=== PATIENT | male | born 1960 | race Caucasian/White ===

== ENCOUNTER 2017-05-03 14:52 | Observation (INO) | payer OTHER ==
[~2017-05-03] VITALS: Ht 182.9 cm; Wt 100.5 kg
--- NOTE | 2017-05-03 15:02 | EMERGENCY ROOM VISIT NOTE ---
History Report prepared by Fabio: Florencio Tyler Under the Supervision of: Dr. Charles Mitchell D.O. First contact with patient: 14:54 Chief Complaint: CHEST PAIN Stated Complaint: CHEST PAIN History of Present Illness The patient is a 56 year old male with a history of heart disease who presents to the Emergency Room via EMS with complaints of persistent chest pain that started around 3 hours ago. He states that he was laying down in bed watching TV when the pain suddenly came on. He notes that he was laying in bed because he was "feeling like garbage". The patient says that he felt dizzy as well. He says that for about 3 seconds, he had very bad chest pain, and then since then he has had persistent chest pain that is not as bad. He says that he currently has the pain. He says that pain wraps like a band around his chest. Per EMS, the patient last had an [place] a month ago, and it was a non-STEMI. The patient states that he had one shot of Nitroglycerin by EMS, and it helped a bit. He says that he had a heart catheterization on April 04 at [facility], and he got 2 stents placed. He says that he has had 6 stents placed in total. The patient states that he quit smoking on April 04. The patient adds that he has recently started to have worsened swelling in his face, neck and chest. Source of History: patient, EMS Onset: Around 3 hours ago Position: chest Symptom Intensity: for 3 seconds was very bad Quality: other (pain) Timing: other (persistent) Modifying Factors (Relieving): other (Nitro) Note: Associated symptoms: Recent swelling to face, neck and chest. Dizziness. Feeling like garbage. Review of Systems See HPI for pertinent positives & negatives. A total of 10 systems reviewed and were otherwise negative. Past Medical & Surgical Medical Problems: (1) CAD S/P percutaneous coronary angioplasty (2) Heart disease (3) Non-STEMI (non-ST elevated myocardial infarction) Family History No pertinent family history Social History Smoking Status: Former Smoker Drug Use: none Occupation Status: employed Current/Historical Medications Scheduled Aspirin (Aspirin Chewable), 81 MG PO DAILY Carvedilol (Coreg), 3.125 MG PO BID Lisinopril (Zestril), 40 MG PO DAILY Nicotine (Nicoderm Cq 21MG Patch), 1 PATCH TD DAILY Nitroglycerin (Nitrostat), 0.4 MG UT PRN Ticagrelor (Brilinta), 1 TAB PO BID Scheduled PRN Acetaminophen (Tylenol), 500 MG PO Q6 PRN for Pain Allergies Coded Allergies: Acetaminophen (Verified Allergy, Unknown, RASH, 05/03/17) Hydrocodone (Verified Allergy, Unknown, RASH, 05/03/17) Statins (Verified Allergy, Unknown, GI SYMPTOMS, MUSCLE PAIN, WEAKNESS, ) Physical Exam Vital Signs Date Time Temp Pulse Resp B/P (MAP) Pulse Ox O2 Delivery O2 Flow Rate FiO2 05/03/17 16:52 94 15 99 05/03/17 16:22 93 18 97 05/03/17 15:59 125/94 05/03/17 15:52 89 21 97 05/03/17 15:22 94 15 172/91 98 05/03/17 15:03 97 Room Air 05/03/17 15:03 92 05/03/17 15:03 37.1 85 20 172/91 98 Room Air 05/03/17 15:03 97 Room Air 05/03/17 15:03 97 Room Air 05/03/17 15:00 172/91 Physical Exam GENERAL: Patient is awake, alert, and in no acute distress. Patient is resting comfortably and showing no signs of anxiety EYES: The conjunctivae are clear. The pupils are round and reactive. EARS, NOSE, MOUTH AND THROAT: The nose is without any evidence of any deformity. Mucous membranes are moist tongue is midline NECK: The neck is nontender and supple. RESPIRATORY: Normal respiratory effort is noted there is no evidence of wheezing rhonchi or rales CARDIOVASCULAR: Regular rate and rhythm noted there no murmurs rubs or gallops normal S1 normal S2 GASTROINTESTINAL: The abdomen is soft. Bowel sounds are present in all quadrants. Abdomen is nontender MUSCULOSKELETAL/EXTREMITIES: There is no evidence of gross deformity full range of motion is noted in the hips and shoulders SKIN: There is no obvious evidence of any rash. There are no petechiae, pallor or cyanosis noted. NEUROLOGIC: Patient is awake alert and oriented x3. Medical Decision & Procedures ER Provider Diagnostic Interpretation: X-ray results as stated below per interpretation by me and the radiologist. CHEST ONE VIEW PORTABLE CLINICAL HISTORY: CHEST PAIN dyspnea COMPARISON STUDY: No previous studies for comparison. FINDINGS: The bones soft tissues and hemidiaphragms are normal. The cardiomediastinal silhouette is normal. The lungs are clear. The pulmonary vasculature is normal. IMPRESSION: Negative chest. The above report was generated using voice recognition software. It may contain grammatical, syntax or spelling errors. Electronically signed by: Melvin Martinez M.D. 05/03/2017 3:31 PM Dictated Date/Time: 05/03/2017 3:31 PM Laboratory Results 05/03/17 14:45 Red Blood Count 5.25, Mean Corpuscular Volume 91.8, Mean Corpuscular Hemoglobin 31.8, Mean Corpuscular Hemoglobin Concent 34.6, Mean Platelet Volume 11.7, Neutrophils (%) (Auto) 70.5, Lymphocytes (%) (Auto) 19.6, Monocytes (%) (Auto) 5.4, Eosinophils (%) (Auto) 3.3, Basophils (%) (Auto) 0.9, Neutrophils # (Auto) 7.17, Lymphocytes # (Auto) 2.00, Monocytes # (Auto) 0.55, Eosinophils # (Auto) 0.34, Basophils # (Auto) 0.09 05/03/17 14:45 Test 05/03/17 14:45 05/03/17 15:12 05/03/17 17:10 White Blood Count 10.18 K/uL (4.8-10.8) Red Blood Count 5.25 M/uL (4.7-6.1) Hemoglobin 16.7 g/dL (14.0-18.0) Hematocrit 48.2 % (42-52) Mean Corpuscular Volume 91.8 fL (80-100) Mean Corpuscular Hemoglobin 31.8 pg (25-34) Mean Corpuscular Hemoglobin Concent 34.6 g/dl (32-36) Platelet Count 187 K/uL (130-400) Mean Platelet Volume 11.7 fL (7.4-10.4) Neutrophils (%) (Auto) 70.5 % Lymphocytes (%) (Auto) 19.6 % Monocytes (%) (Auto) 5.4 % Eosinophils (%) (Auto) 3.3 % Basophils (%) (Auto) 0.9 % Neutrophils # (Auto) 7.17 K/uL (1.4-6.5) Lymphocytes # (Auto) 2.00 K/uL (1.2-3.4) Monocytes # (Auto) 0.55 K/uL (0.11-0.59) Eosinophils # (Auto) 0.34 K/uL (0-0.5) Basophils # (Auto) 0.09 K/uL (0-0.2) RDW Standard Deviation 44.5 fL (36.4-46.3) RDW Coefficient of Variation 13.3 % (11.5-14.5) Immature Granulocyte % (Auto) 0.3 % Immature Granulocyte # (Auto) 0.03 K/uL (0.00-0.02) Prothrombin Time 10.6 SECONDS (9.0-12.0) Prothromb Time International Ratio 1.0 (0.9-1.1) Activated Partial Thromboplast Time 27.8 SECONDS (21.0-31.0) Partial Thromboplastin Ratio 1.1 Anion Gap 4.0 mmol/L (3-11) Est Creatinine Clear Calc Drug Dose 90.1 ml/min Estimated GFR () 80.6 Estimated GFR (Non- 69.5 BUN/Creatinine Ratio 20.9 (10-20) Calcium Level 9.4 mg/dl (8.5-10.1) Total Bilirubin 0.5 mg/dl (0.2-1) Direct Bilirubin 0.1 mg/dl (0-0.2) Aspartate Amino Transf (AST/SGOT) 10 U/L (15-37) Alanine Aminotransferase (ALT/SGPT) 24 U/L (12-78) Alkaline Phosphatase 76 U/L (45-117) Total Creatine Kinase 59 U/L (39-308) Creatine Kinase MB 0.8 ng/ml (0.5-3.6) Creatine Kinase MB Ratio 1.4 (0-3.0) Total Protein 7.8 gm/dl (6.4-8.2) Albumin 4.2 gm/dl (3.4-5.0) Lipase 194 U/L (73-393) Bedside Troponin I < 0.030 ng/ml (0-0.045) Laboratory results per my review. ECG Indication: chest pain Rate (beats per minute): 89 Rhythm: normal sinus Findings: Q waves (Inferior), no ectopy, other (no acute ST segment abnormalities) ED Course 1454: The patient was evaluated in room A12B. A complete history and physical examination were performed. 1617: Upon reevaluation, the patient is resting. I discussed results and treatment plan with him. He verbalizes agreement and understanding. The patient will be evaluated for further management and care. 1640: I discussed the patient's case with Dr. Jose Alfredo Pastor form maker plaster. The patient will be evaluated for further management. 1643: I discussed the patient with Dr. Karla bagley. Medical Decision Differential diagnosis: Etiologies such as cardiac ischemia, aortic dissection, pulmonary embolism, pneumonia, pneumothorax, musculoskeletal, infections, pericarditis, myocarditis , esophageal rupture, gastrointestinal, as well as others were entertained. Nursing notes reviewed. The patient's previous electronic medical records reviewed. The patient is a 56-year-old male who has a history of coronary artery disease as well as recent cardiac stenting who presented to the emergency department for an evaluation of chest pain. The patient describes chest pain which is a band around his chest consistent with squeezing. He also states he has had similar episodes in the past related to coronary artery disease and [place]. The patient was treated with aspirin as well as nitroglycerin prior to arrival. His pain was significantly improved. I discussed the patient's laboratory and radiographic studies with him. I also discussed the limitations of the emergency department workup for chest pain with him. Given the patient's history and comorbidities I also discussed his case with the on-call [facility] hospitalist as well as the on-call [facility] bonding machine operator. They've agreed to evaluate the patient for further management and disposition. Medication Reconcilliation Current Medication List: was personally reviewed by me Blood Pressure Screening Patient's blood pressure: Elevated blood pressure Blood pressure disposition: Elevated BP felt to be situational Consults Time Called: 1637 Consulting Physician: Dr. Jose Alfredo Pastor form maker plaster Returned Call: 1640 I discussed the patient's case with Dr. Jose Alfredo Pastor form maker plaster. The patient will be evaluated for further management. Additional Consults: Time Called: 1640 Consulted Physician: Dr. Karla Pastor cardiology Returned Call: 1643 Additional Comments: I discussed the patient with Dr. Karla bagley. Impression Primary Impression: Chest pain Scribe Attestation The scribe's documentation has been prepared under my direction and personally reviewed by me in its entirety. I confirm that the note above accurately reflects all work, treatment, procedures, and medical decision making performed by me. Departure Information Dispostion Being Evaluated By Hospitalist Patient Instructions My [facility] Health Problem Qualifiers Primary Impression: Chest pain Chest pain type: unspecified Qualified Codes: R07.9 - Chest pain, unspecified
[2017-05-03 15:21] LABS: BASO % 0.9 %; BASO ABS # 0.09 K/uL (0-0.2); EOS % 3.3 %; EOS ABS # 0.34 K/uL (0-0.5); HEMATOCRIT 48.2 % (42-52); HEMOGLOBIN 16.7 g/dL (14.0-18.0); IG# 0.03 K/uL (0.00-0.02); LYMPH % 19.6 %; MEAN CELL VOLUME 91.8 fL (80-100); MEAN CORPUSCULAR HEMOGLOBIN 31.8 pg (25-34); MEAN CORPUSCULAR HGB CONC 34.6 g/dl (32-36); MEAN PLATELET VOLUME 11.7 fL (7.4-10.4); MONO % 5.4 %; MONO ABS # 0.55 K/uL (0.11-0.59); NEUT % 70.5 %; NEUT ABS # 7.17 K/uL (1.4-6.5); PLATELET COUNT 187 K/uL (130-400); RED CELL DISTRIBUTION WIDTH CV 13.3 % (11.5-14.5); RED CELL DISTRIBUTION WIDTH SD 44.5 fL (36.4-46.3); WHITE BLOOD COUNT 10.18 K/uL (4.8-10.8)
[2017-05-03] MEDS ORDERED: NICO21DI35 TD (15:23)
[2017-05-03] MEDS ORDERED: ACET-1256 PO (15:23)
[2017-05-03] MEDS ORDERED: NTRGSL/4 UT (15:23)
[2017-05-03] MEDS ORDERED: CARV3.122 PO (15:23)
[2017-05-03] MEDS ORDERED: LISI40TA PO (15:23)
[2017-05-03] MEDS ORDERED: ASPCH81X PO (15:23)
[2017-05-03] MEDS ORDERED: TICA1TAB PO (15:23)
--- NOTE | 2017-05-03 15:33 | DIAGNOSTIC IMAGING REPORT ---
CHEST ONE VIEW PORTABLE CLINICAL HISTORY: CHEST PAIN dyspnea COMPARISON STUDY: No previous studies for comparison. FINDINGS: The bones soft tissues and hemidiaphragms are normal. The cardiomediastinal silhouette is normal. The lungs are clear. The pulmonary vasculature is normal. IMPRESSION: Negative chest. The above report was generated using voice recognition software. It may contain grammatical, syntax or spelling errors. Electronically signed by: Melvin Martinez M.D. 05/03/2017 3:31 PM Dictated Date/Time: 05/03/2017 3:31 PM
[2017-05-03 15:39] LABS: ALBUMIN 4.2 gm/dl (3.4-5.0); CALCIUM 9.4 mg/dl (8.5-10.1); CREATININE 1.18 mg/dl (0.60-1.40); POTASSIUM 4.5 mmol/L (3.5-5.1)
[2017-05-03 15:42] LABS: PTT PATIENT 27.8 SECONDS (21.0-31.0)
[2017-05-03 15:44] LABS: CKMB 0.8 ng/ml (0.5-3.6); TOTAL PROTEIN 7.8 gm/dl (6.4-8.2)
[2017-05-03] MEDS ORDERED: ACETAMINOPHEN 500 MG TAB PO PRN (17:15)
[2017-05-03] MEDS ORDERED: ONDANSETRON INJ 2 MG/ML 2 ML VIAL IV PRN (17:15)
[2017-05-03] MEDS ORDERED: NITROGLYCERIN 0.4 MG SL PER TAB CHARGE UT PRN (17:15)
[2017-05-03 18:33] VITALS: BP 164/98; PULSE 82; TEMP 36.8; O2SAT 99; Ht 182.9 cm; Wt 100.5 kg
[2017-05-03] MEDS ORDERED: NSS + 20MEQ KCL 1000ML 1,000 ML IV SCH (19:00)
--- NOTE | 2017-05-03 19:53 | HISTORY & PHYSICAL EXAMINATION ---
DATE OF ADMISSION: 05/03/2017 PRIMARY CARE PHYSICIAN: Not from this area. CHIEF COMPLAINT: Dizziness, nausea, lethargy for about 2 to 3 weeks. Chest pain when he woke up this morning. HISTORY OF PRESENT COMPLAINT: He is a 56-year-old male with significant past medical history including heart attack x3 and recent status post cardiac cath and 2 more stent placement in LAD at [facility], on or 05 of April and also hyperlipidemia and hypertension. He has been complaining of feeling generally unwell for the last 2 to 3 weeks following that last stent placement in first week of April. He denies to have any increasing shortness of breath with any increasing tiredness and fatigue with any chest pain, but early this morning, he woke up with a punch in the chest, not like the chest pain that he had before, but that lasted for 10 minutes when he called ambulance. In the ambulance, he got the nitroglycerin. The pain almost gone away and he had some headache following that. No radiation of pain. Did have some nausea, but no vomiting and did have some shortness of breath as well. In the ER, he is free of pain and apparent test came back fairly unremarkable, but given the history of stent placement recently and the chest pain, he was admitted to telemetry unit. PAST MEDICAL HISTORY: Significant for hypertension, hyperlipidemia, not been taking any medications and status post 3 heart attacks with stent placement in LAD on 03 of April at [facility]. He has total of 6 stents placed in the LAD and the last 2 were placed in April. PAST SURGICAL HISTORY: Bilateral shoulder arthroscopic surgery, right foot surgery. He has a history of lumbar disk fracture in 1979, but did not have any surgery. FAMILY HISTORY: Significant that father had heart disease and diabetes in the family, but not with him. SOCIAL HISTORY: He is single. He has 4 children. He quit smoking in April 04 with a 89-cvvy-veyd history of smoking. He does not drink and he has been ambulant. ALLERGIES: TO VICODIN, STATIN AND PLAVIX. MEDICATIONS: He has been on acetaminophen 500 mg q.6 hourly p.r.n., aspirin 81 mg daily, carvedilol 3.125 mg twice daily, lisinopril 40 mg daily, nicotine patch 21 mg daily, Nitrostat 0.4 mg as directed, and Brilinta 90 mg tablet twice daily. REVIEW OF SYSTEMS: Other systems reviewed reveal unremarkable except those mentioned in the history of present complaint. PHYSICAL EXAMINATION: GENERAL: On examination in the Emergency Room, he was not having any acute distress. VITAL SIGNS: Temperature 37.1, pulse is 94, blood pressure 125/94, and saturation 99% on room air. HEENT: Unremarkable. NECK: Supple. No JVD. No bruit. CHEST: Clear to auscultate bilaterally. HEART: S1, S2 regular. ABDOMEN: Soft, benign, nontender. No organomegaly. Bowel sounds present. EXTREMITIES: Negative for any edema. MUSCULOSKELETAL: Examination of the musculoskeletal system did not show any acute arthritis involving any joint. CENTRAL NERVOUS SYSTEM: He was alert, awake, oriented x3. No focal sensory and/or motor deficit appreciated. LABORATORY DATA: Labs noted today, white count was 10.18, H&H 16.7/48.2, and platelet was 187. Sodium 133, potassium 4.5, chloride 101, carbon dioxide 28, BUN 25, creatinine 1.18, and random glucose was 90. LFTs normal. Troponin was less than 0.030. Lipase 194. PT/INR unremarkable. IMAGING STUDIES: Chest x-ray reported as negative chest. An EKG was in sinus rhythm, rate of 89 per minute. Normal axis. Minor nonspecific ST-T wave changes. No prior EKG to compare. IMPRESSION AND PLAN: 1. Chest pain, status post cardiac stent placement in first week of April in left anterior descending. The patient will be admitted to telemetry unit. Cardiology consultation will be taken while in the hospital. Serial cardiac enzymes. Records from [facility] to know about details of the cardiac catheterization. The patient wanted to have a research and development researcher around here and also PCP around here. He is planning to go to [facility] as told. 2. Coronary artery disease, status post 6 cardiac stents placed in left anterior descending, the last 2 was done in second or third of April in [facility], by Dr. Damico. We will continue with his current medications. 3. High cholesterol, he cannot take any statin. He was given atorvastatin. He has been taking it. We will check his cholesterol while in the hospital. 4. Hypertension. BP seems to be under control. Continue with current medication. 5. Gastrointestinal prophylaxis with Protonix. 6. Deep venous thrombosis prophylaxis with subcutaneous heparin. 7. Code status. He will be a full code. In my clinical judgment, the beneficiary meets criteria as per CMS for 2 midnight stay in the hospital. GEORGI
[2017-05-03] MEDS ORDERED: SODIUM CHLORIDE 0.9% 1000ML 1,000 ML IV SCH (22:00)
[2017-05-03] MEDS: TICAGRELOR 90 MG TAB PO SCH (22:15)
[2017-05-03] MEDS: CARVEDILOL 3.125 MG TAB PO SCH (22:15)
[2017-05-03] MEDS: HEPARIN SOD 5000 UNIT/0.5 ML CARP SQ SCH (22:19)
[2017-05-03 23:41] VITALS: BP 92/56; PULSE 79; TEMP 36.7; O2SAT 97
[2017-05-04 03:44] VITALS: BP 103/69; PULSE 90; TEMP 36.8; O2SAT 97
[2017-05-04] MEDS: HEPARIN SOD 5000 UNIT/0.5 ML CARP SQ SCH ×3 (05:31→20:39)
[2017-05-04 05:53] LABS: HEMATOCRIT 44.1 % (42-52); HEMOGLOBIN 15.3 g/dL (14.0-18.0); MEAN CELL VOLUME 91.1 fL (80-100); MEAN CORPUSCULAR HEMOGLOBIN 31.6 pg (25-34); MEAN CORPUSCULAR HGB CONC 34.7 g/dl (32-36); MEAN PLATELET VOLUME 11.2 fL (7.4-10.4); PLATELET COUNT 150 K/uL (130-400); RED CELL DISTRIBUTION WIDTH CV 13.3 % (11.5-14.5); RED CELL DISTRIBUTION WIDTH SD 43.9 fL (36.4-46.3); WHITE BLOOD COUNT 8.14 K/uL (4.8-10.8)
[2017-05-04 06:26] LABS: CALCIUM 8.6 mg/dl (8.5-10.1); CREATININE 1.24 mg/dl (0.60-1.40); POTASSIUM 4.2 mmol/L (3.5-5.1)
[2017-05-04 07:39] VITALS: BP 83/52; PULSE 79; TEMP 36.6; O2SAT 96
[2017-05-04] MEDS: ASPIRIN 81 MG ECTAB PO SCH (08:55)
[2017-05-04] MEDS: CARVEDILOL 3.125 MG TAB PO SCH ×2 (08:55→19:50)
[2017-05-04] MEDS ORDERED: PERFLUTREN LIPID MICROSPHERE (DEFINITY) IV ONE (08:55)
[2017-05-04] MEDS: TICAGRELOR 90 MG TAB PO SCH ×2 (08:55→20:36)
[2017-05-04] MEDS: NICOTINE 21 MG/24 HR TDSY TD SCH (08:56)
[2017-05-04] MEDS ORDERED: LISINOPRIL 40 MG TAB PO SCH (09:00)
[2017-05-04] MEDS ORDERED: EZETIMIBE 10MG TAB PO ONE (11:31)
[2017-05-04 11:40] VITALS: BP 103/68; PULSE 77; TEMP 36.7; O2SAT 98
--- NOTE | 2017-05-04 11:41 | ECHOCARDIOGRAM REPORT ---
*NOTICE TO RECEIVING CONSTITUTION PARTY AGENCY This information is strictly Confidential and protected under [place] law. [place] law prohibits you from making any further disclosure of this information unless further disclosure is expressly permitted by the written consent of the person to whom it pertains or is authorized by law. A general authorization for the release of medical or other information is not sufficient for this purpose. Hospital accepts no responsibility if the information is made available to any other person, INCLUDING THE PATIENT. Interpretation Summary * Name: NORI SANCHES Study Date: 05/04/2017 08:30 AM BP: 83/52 mmHg * Patient Location: C.2T\S\S242\S\2 HR: 76 * : 1960 (M/d/yyyy) Gender: Male Height: 72 in * Age: 56 yrs Ethnicity: CA Weight: 233 lb * Ordering Physician: Radha Veliz * Referring Physician: Self, Referred * Performed By: Stephani Uriostegui RDCS * * Reason For Study: CAD S/P STENT * BSA: 2.3 m2 * The study was technically adequate. * -- Conclusions -- * There is mild concentric left ventricular hypertrophy. * No regional wall motion abnormalities noted. * Left ventricular systolic function is normal. * The LV Ejection Fraction = 55-60%. * Grade I diastolic dysfunction, (abnormal relaxation pattern). * There is no significant valvular heart disease. Procedure Details * A contrast injection of Definity was performed to improve assessment of LV function. * Contrast was injected into an intravenous site in the right arm. * One vial of Definity ultrasound contrast was diluted in normal saline to a total volume of 10 ml. A total of '1' ml of solution was administered during imaging. * Lot # [id number] of Definity utilized for procedure. * Expiration date JUN 22. * The attending nurse who injected the contrast agent was INDERJIT JOHNS RN. * A complete two-dimensional transthoracic echocardiogram was performed (2D, M-mode, Doppler and color flow Doppler). Left Ventricle * The left ventricle is normal in size. * There is mild concentric left ventricular hypertrophy. * Ejection Fraction = 55-60%. * Left ventricular systolic function is normal. * The left ventricular wall motion is normal. * No regional wall motion abnormalities noted. Right Ventricle * The right ventricle is normal size. * The right ventricular systolic function is normal as assessed by tricuspid annular plane systolic excursion (TAPSE) (normal >1.5 cm). Atria * The left atrial size is normal. * Right atrial size is normal. * There is no evidence of atrial septal defect, but resolution does not allow assessment for a patent foramen ovale. Mitral Valve * The mitral valve is normal. * There is no mitral valve stenosis. * Significant mitral regurgitation is absent. Tricuspid Valve * The tricuspid valve is normal. * There is no tricuspid stenosis. * Significant tricuspid regurgitation is absent. Aortic Valve * The aortic valve is trileaflet. * Aortic stenosis is absent. * There is no significant aortic regurgitation. Pulmonic Valve * The pulmonary valve is not well seen, but the Doppler examination is normal without significant regurgitation or stenosis. Great Vessels * The aortic root and proximal ascending aorta are normal sized. Pericardium/Pleural * There is no pericardial effusion. Great Vessels * Normal inferior vena cava diameter and respiratory variation suggests normal central venous pressure. Left Ventricular Diastolic Function * Grade I diastolic dysfunction, (abnormal relaxation pattern). MMode 2D Measurements and Calculations IVSd 1.5 cm IVSs 2.0 cm LVIDd 4.1 cm LVIDs 2.7 cm LVPWd 1.4 cm LVPWs 1.9 cm IVS/LVPW 1.1 FS 35.1 % EDV(Teich) 76.3 ml ESV(Teich) 26.8 ml EF(Teich) 64.9 % EDV(cubed) 71.4 ml ESV(cubed) 19.5 ml EF(cubed) 72.7 % % IVS thick 38.1 % % LVPW thick 42.1 % LV mass(C)d 224.2 grams LV mass(C)dI 98.6 grams/m\S\2 LV mass(C)s 229.7 grams LV mass(C)sI 101.0 grams/m\S\2 SV(Teich) 49.5 ml SI(Teich) 21.8 ml/m\S\2 SV(cubed) 51.9 ml SI(cubed) 22.8 ml/m\S\2 Ao root diam 3.4 cm Ao root area 9.0 cm\S\2 LA dimension 3.6 cm LA/Ao 1.1 LVAd ap4 30.0 cm\S\2 LVLd ap4 8.0 cm EDV(MOD-sp4) 90.2 ml EDV(sp4-el) 95.5 ml LVAs ap4 17.6 cm\S\2 LVLs ap4 6.8 cm ESV(MOD-sp4) 38.8 ml ESV(sp4-el) 38.9 ml EF(MOD-sp4) 57.0 % EF(sp4-el) 59.2 % LVAd ap2 32.5 cm\S\2 LVLd ap2 8.7 cm EDV(MOD-sp2) 105.3 ml EDV(sp2-el) 103.1 ml LVAs ap2 19.1 cm\S\2 LVLs ap2 7.3 cm ESV(MOD-sp2) 42.6 ml ESV(sp2-el) 42.2 ml EF(MOD-sp2) 59.6 % EF(sp2-el) 59.1 % LVLd %diff 8.5 % EDV(MOD-bp) 96.5 ml LVLs %diff 7.6 % ESV(MOD-bp) 40.5 ml EF(MOD-bp) 58.0 % SV(MOD-sp4) 51.4 ml SI(MOD-sp4) 22.6 ml/m\S\2 SV(MOD-sp2) 62.7 ml SI(MOD-sp2) 27.6 ml/m\S\2 SV(MOD-bp) 56.0 ml SI(MOD-bp) 24.6 ml/m\S\2 SV(sp4-el) 56.5 ml SI(sp4-el) 24.9 ml/m\S\2 SV(sp2-el) 60.9 ml SI(sp2-el) 26.8 ml/m\S\2 Doppler Measurements and Calculations MV E max kelby 56.2 cm/sec MV A max kelby 61.5 cm/sec MV E/A 0.91 MV dec time 0.26 sec Ao V2 max 123.8 cm/sec Ao max PG 6.1 mmHg Ao max PG (full) 1.4 mmHg LV V1 max PG 4.7 mmHg LV V1 max 108.3 cm/sec
--- NOTE | 2017-05-04 12:13 | Cardiology Consultation ---
Cardiology Consultation Date of Consultation: May 04, 2017 History of Present Illness Mahad Posey is a 56 year old male seen in cardiology consultation per the request of Dr. Veliz for the evaluation of chest discomfort. He has a complex cardiac history having had his third myocardial infarction in April, which time he received 2 drug-eluting stents to the mid LAD at [facility]. Since discharge he has been feeling well. He has been tolerating his medications well with the exception of atorvastatin which she has stopped taking. He complains of generalized illness and muscle aches with having had been on trials of statin therapy in the past. He states he has not missed any doses of his aspirin or his Brilinta since his recent stents. Yesterday while he was sleeping he woke up with a sudden onset of feeling like he had been "punched in the chest". He felt associated shortness of breath with this. He called EMS and took a dose of aspirin . Upon arrival of the emergency medical services a dose of sublingual nitroglycerin was added yesterday with subsequent improvement in his chest discomfort however he did have a headache and felt a little bit dizzy and nauseous. Since arrival to the emergency room he has been feeling relatively better. He rested well overnight last night and noted several very brief episodes of chest discomfort of one to 2 seconds duration. He does not feel as though the discomfort that brought him to the hospital yesterday is definitely reminiscent of the discomfort that prompted his admission and stenting at [facility] last month. Past Medical/Surgical History Problem List: Medical Problems: (1) CAD S/P percutaneous coronary angioplasty (2) Heart disease (3) Non-STEMI (non-ST elevated myocardial infarction) History Past Medical History: 1. 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 Recurrent angina for which she underwent cardiac catheterization on 09/01/14 receiving 2 stents to the proximal to mid LAD, [facility] 3. Presentation with transient bandlike chest discomfort radiating to his arms, NSTEMI, troponin of 2 ng/ml on presentation. Prompting repeat cardiac catheterization 04/06/17 with findings of in-stent restenosis of the mid LAD with 80-90% in-stent restenosis and an 80% stenosis just distal to the previously placed LAD stents are the patient therefore underwent repeat PCI and placement of overlapping [place] [employer] drug-eluting stents to the mid LAD, [facility] [place] 4. Hypertension 5. Long-standing history of cigarette smoking, ceased smoking with his most recent myocardial infarction, 04/14/17 6. Dyslipidemia, statin intolerance Past Surgical History: 1. Cardiac catheterization 3 as outlined above 2005, 2014, April, Social History: Long-time cigarette smoker, quit 04/04/17 He lives alone, independently. 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 Review Of Systems See above for pertinent positives & negatives. A total of 10 systems reviewed and were otherwise negative, with exception of additional complaint of occasional sensation of palpitations and dizziness. Allergies Coded Allergies: Acetaminophen (Verified Allergy, Unknown, RASH, 05/03/17) Hydrocodone (Verified Allergy, Unknown, RASH, 05/03/17) Statins (Verified Allergy, Unknown, GI SYMPTOMS, MUSCLE PAIN, WEAKNESS, ) Medications Reported Home Medications Medications Dose Route/Sig Max Daily Dose Days Date Category Tylenol (Acetaminophen) 500 Mg Tab 500 Mg PO Q6 PRN 05/03/17 Reported Brilinta (Ticagrelor) 90 Mg Tab 1 Tab PO BID 05/03/17 Reported Nitrostat (Nitroglycerin) 0.4 Mg Tab 0.4 Mg UT PRN 05/03/17 Reported Nicoderm Cq 21MG Patch (Nicotine) 21 Mg/24 Hr Dis 1 Patch TD DAILY 05/03/17 Reported Coreg (Carvedilol) 3.125 Mg Tab 3.125 Mg PO BID 05/03/17 Reported Aspirin Chewable (Aspirin) 81 Mg Chew 81 Mg PO DAILY 05/03/17 Reported Zestril (Lisinopril) 40 Mg Tab 40 Mg PO DAILY 05/03/17 Reported Physical Exam Vital Signs (Last 8hrs): Last 8 Hrs Date Time Temp Pulse Resp B/P (MAP) Pulse Ox O2 Delivery O2 Flow Rate FiO2 05/04/17 11:40 36.7 77 18 103/68 (80) 98 Room Air 05/04/17 08:00 Room Air 05/04/17 07:39 36.6 79 16 83/52 (62) 96 Room Air 05/04/17 04:00 Room Air General Appearance: Alert and Oriented x3. NAD. Head: Normocephalic Atraumatic. Eyes: PERRLA, EOMI, conjunctiva and sclera clear Neck: Supple. No carotid bruits noted. No JVD. No HJD. Respiratory: Breath sounds clear to auscultation bilaterally. No w/r/r. Cardiovascular: Reg rate and rhythm. S1 and S2 noted. No murmurs, rubs, gallops. PMI non displace. Abdomen: Normal bowel sounds, soft nontender. no abdominal bruits. Extremities: No edema, no clubbing or cyanosis. distal pulses 2/4 bilaterally, right radial access from his recent cardiac catheterization is clean dry and intact, with no ecchymosis, no stigmata of peripheral emboli Neuro: No focal deficits. Psychiatric: Normal affect. Data Last Resulted 05/04/17 05:35 Last Resulted 05/04/17 05:35 Past 24 Hours Test 05/03/17 14:45 05/03/17 22:54 05/04/17 05:35 Range/Units Creatine Kinase MB 0.8 0.5-3.6 ng/ml Creatine Kinase MB Ratio 1.4 0-3.0 Prothromb Time International Ratio 1.0 0.9-1.1 Prothrombin Time 10.6 9.0-12.0 SECONDS Total Creatine Kinase 59 39-308 U/L Troponin I 0.017 < 0.015 < 0.015 0-0.045 ng/ml EKG performed 05/03/17 and reviewed independently reveals sinus rhythm at 89 bpm, poor R-wave progression in leads V1 to V3 suggestive of possible age- indeterminate anterior infarction, no significant ST changes. Telemetry reviewed: Sinus rhythm with occasional PVCs Assessment & Plan Impression: 56-year-old male 1. Presented with chest discomfort, somewhat atypical angina, and not reminiscent of the discomfort that was described when he presented with his non- ST segment elevation myocardial infarction in April, 2. Long-standing history of premature aggressive coronary heart disease, with PCI stenting to the mid LAD on 3 separate occasions, 2005, , April 2017. Recent cardiac catheterization describes culprit in-stent restenosis of the LAD for which she underwent implantation of overlapping drug-eluting stents , residual 40-50% proximal RCA stenosis was noted. 3. Hypertension 4. Recent dizziness and palpitations 5. Long-standing tobacco use, recently ceased one month ago Discussion/recommendations: The patient's EKG performed on presentation yesterday was negative, repeat today is pending. Serial cardiac enzymes have been negative with negative troponin levels 3 thus far. He has no symptoms suggestive of angina at present. Recommend increasing his activity as tolerated. I'm going to ask the nurses to help him get up and ambulate in the hallway. The patient states he has problems with arthritis in his knees and he does not feel that he'll be old to walk sufficiently on a treadmill for stress test. His resting echocardiogram performed this morning reveals normal wall motion and no significant valvular heart disease. Review of his recent records from [place] described that he had no significant EKG changes and his resting echocardiogram was within normal limits during that hospital stay at the time of his recent myocardial infarction. Comparison to presentation one month ago, the characteristic of the chest discomfort is different, and his cardiac enzymes are negative on this presentation as compared to being elevated last time. He has not missed any doses of his antiplatelet medications. I recommend getting him up and if he is able to walk comfortably without the additional angina, proceed with pharmacologic stress testing tomorrow. Patient was agreeable to this. I'm going to discontinue his IV fluids. Continue aspirin, Brilinta, lisinopril 40 mg daily, carvedilol 3.125 mg twice a day, and I'm going to add back his LDL 10 mg daily which he has tolerated the past given his significant dyslipidemia and apparent statin intolerance.
[2017-05-04 15:32] VITALS: BP 108/73; PULSE 73; TEMP 36.7; O2SAT 97
[2017-05-04] MEDS ORDERED: PANTOprazole SOD 40 MG TAB PO STA (16:41)
--- NOTE | 2017-05-04 17:34 | Progress Note ---
Internal Med Progress Note Date of Service: May 04, 2017. Provider Documentation: SUBJECTIVE: Patient seen and examined at the bedside. No acute distress. Denies further chest pain episodes. Patient understands he is due for stress test tomorrow OBJECTIVE: Exam: General- no acute distress Eyes- EOMI Neck- trachea midline, no JVD Lungs- CTABL Heart- RRR Abdomen- soft, nontender, + bowel sounds Extremities- no edema Neuro- no focal necrological deficits ASSESSMENT & PLAN: 56-year-old male with significant past medical history including heart attack x3 and recent status post cardiac cath and 2 more stent placement in LAD at [facility], on or 05 of April and also hyperlipidemia and hypertension. He has been complaining of feeling generally unwell for the last 2 to 3 weeks following that last stent placement in first week of April. negative troponin levels 3 Resting Echocardiogram 05/04/2017 There is mild concentric left ventricular hypertrophy. No regional wall motion abnormalities noted. Left ventricular systolic function is normal. The LV Ejection Fraction = 55-60%. Grade I diastolic dysfunction, (abnormal relaxation pattern). There is no significant valvular heart disease. pharmacologic stress testing tomorrow NPO after midnight except medications For above cardiac history, HTN, dyslipidemia Continue aspirin, Brilinta, lisinopril 40 mg daily, carvedilol 3.125 mg twice a day Cardiology service added Zetia 10 mg daily which he has tolerated the past given his significant dyslipidemia and apparent statin intolerance. Gastrointestinal prophylaxis with Protonix. Deep venous thrombosis prophylaxis with subcutaneous heparin. Code status. Full code. Vital Signs: Date Time Temp Pulse Resp B/P (MAP) Pulse Ox O2 Delivery O2 Flow Rate FiO2 05/04/17 16:00 Room Air 05/04/17 15:32 36.7 73 108/73 (85) 97 Room Air 05/04/17 12:00 Room Air 05/04/17 11:40 36.7 77 18 103/68 (80) 98 Room Air 05/04/17 08:00 Room Air 05/04/17 07:39 36.6 79 16 83/52 (62) 96 Room Air 05/04/17 04:00 Room Air 05/04/17 03:44 36.8 90 17 103/69 (80) 97 Room Air 05/04/17 00:02 Room Air 05/03/17 23:41 36.7 79 20 92/56 (68) 97 Room Air 05/03/17 20:00 Room Air 05/03/17 18:33 36.8 82 18 164/98 99 Room Air 05/03/17 17:40 78 20 120/84 97 Room Air Lab Results: Results Past 24 Hours Test 05/03/17 22:54 05/04/17 05:35 Range/Units Troponin I < 0.015 < 0.015 0-0.045 ng/ml White Blood Count 8.14 4.8-10.8 K/uL Red Blood Count 4.84 4.7-6.1 M/uL Hemoglobin 15.3 14.0-18.0 g/dL Hematocrit 44.1 42-52 % Mean Corpuscular Volume 91.1 80-100 fL Mean Corpuscular Hemoglobin 31.6 25-34 pg Mean Corpuscular Hemoglobin Concent 34.7 32-36 g/dl RDW Standard Deviation 43.9 36.4-46.3 fL RDW Coefficient of Variation 13.3 11.5-14.5 % Platelet Count 150 130-400 K/uL Mean Platelet Volume 11.2 7.4-10.4 fL Sodium Level 134 136-145 mmol/L Potassium Level 4.2 3.5-5.1 mmol/L Chloride Level 104 98-107 mmol/L Carbon Dioxide Level 24 21-32 mmol/L Anion Gap 6.0 3-11 mmol/L Blood Urea Nitrogen 23 7-18 mg/dl Creatinine 1.24 0.60-1.40 mg/dl Est Creatinine Clear Calc Drug Dose 84.1 ml/min Estimated GFR () 75.9 Estimated GFR (Non- 65.5 BUN/Creatinine Ratio 18.9 10-20 Random Glucose 93 70-99 mg/dl Calcium Level 8.6 8.5-10.1 mg/dl Magnesium Level 2.2 1.8-2.4 mg/dl Triglycerides Level 108 0-150 mg/dl Cholesterol Level 233 0-200 mg/dl HDL Cholesterol 35 mg/dl LDL Cholesterol, Calculated 176 mg/dl VLDL Cholesterol, Calculated 22 mg/dl Cholesterol/HDL Ratio 6.7 Thyroid Stimulating Hormone (TSH) 2.540 0.300-4.500 uIu/ml
[2017-05-04 19:35] VITALS: BP 82/49; PULSE 79; TEMP 36.7; O2SAT 95
[2017-05-04 23:54] VITALS: BP 100/63; PULSE 72; TEMP 36.4; O2SAT 98
[2017-05-05 03:23] VITALS: BP 98/64; PULSE 71; TEMP 36.5; O2SAT 95
[2017-05-05] MEDS: HEPARIN SOD 5000 UNIT/0.5 ML CARP SQ SCH (06:18)
[2017-05-05 07:50] VITALS: BP 106/68; PULSE 74; TEMP 36.5; O2SAT 97
[2017-05-05 08:17] LABS: ALBUMIN 3.5 gm/dl (3.4-5.0); CALCIUM 8.8 mg/dl (8.5-10.1); CREATININE 1.23 mg/dl (0.60-1.40); POTASSIUM 4.2 mmol/L (3.5-5.1)
[2017-05-05 08:19] LABS: TOTAL PROTEIN 6.6 gm/dl (6.4-8.2)
[2017-05-05] MEDS ORDERED: METOPROLOL TARTRATE 1 MG/ML VIAL ONE (08:40)
[2017-05-05] MEDS ORDERED: ATROPINE SULFATE 0.1 MG/ML 5ML SYR ONE (08:40)
[2017-05-05] MEDS ORDERED: DOBUTamine HCL 12.5 MG/ML 20 ML VIAL ONE (08:40)
[2017-05-05] MEDS ORDERED: PANTOprazole SOD 40 MG TAB PO SCH (09:00)
[2017-05-05] MEDS ORDERED: EZETIMIBE 10MG TAB PO SCH (09:00)
[2017-05-05] MEDS ORDERED: PERFLUTREN LIPID MICROSPHERE (DEFINITY) IV ONE (09:32)
[2017-05-05 10:05] VITALS: BP 114/62; PULSE 86; TEMP 36.7; O2SAT 97
[2017-05-05] MEDS ORDERED: METOPROLOL TARTRATE 25 MG TAB PO ONE (10:07)
[2017-05-05] MEDS: TICAGRELOR 90 MG TAB PO SCH (10:12)
[2017-05-05] MEDS: ASPIRIN 81 MG ECTAB PO SCH (10:12)
[2017-05-05] MEDS: NICOTINE 21 MG/24 HR TDSY TD SCH (10:13)
--- NOTE | 2017-05-05 10:16 | Cardiology Follow-Up ---
Subjective General Date of Service: May 05, 2017. Chief Complaint: follow up chest pain Pt evaluation today including: conversation w/ patient, physical exam History of Present Illness The patient is a 56 year old male seen in follow up. Patient without any angina overnight. Has "twinges" of discomfort that correlate with sensed PVCs. Feels tired and washed out. Notes his BP is much lower than usual. His lisinopril dose of 20 mg had recently been increased to 40 mg daily. Telemetry SR with occasional PVCs. Allergies Coded Allergies: Acetaminophen (Verified Allergy, Unknown, RASH, 05/03/17) Hydrocodone (Verified Allergy, Unknown, RASH, 05/03/17) Statins (Verified Allergy, Unknown, GI SYMPTOMS, MUSCLE PAIN, WEAKNESS, ) Social History Smoking Status: Former Smoker Hx Tobacco Use In Past Year?: Yes Hx Alcohol Use - Type And Amou: No Hx Substance Use - Type And Am: No Problem List Medical Problems: (1) Chest pain Status: Acute Physical Exam Vital Signs Last Vital Signs Documentation Date Time Temp Pulse Resp B/P (MAP) Pulse Ox O2 Delivery O2 Flow Rate FiO2 05/05/17 08:00 Room Air 05/05/17 07:50 36.5 74 18 106/68 (81) 97 Physical Exam Constitutional: Level of Distress: NAD Head: normocephalic ENMT: normal ENT inspection Neck: supple Lungs: Auscultation: no wheezing, no rales/crackles, no rhonchi Cardiovascular: Heart Auscultation: RRR, no murmurs, no rubs, no gallops Abdomen: Inspection & Palpation: soft Extremities: no edema Neurologic: Gait & Station: pertinent finding (no focal deficits ) Assessment and Plan Assessment and Plan DSE summarized below, full report to follow. Impression: 1. Atypical chest pain. h/o CAD, PCI to LAD in 2005, 2014, 04/2017 2. Sensed PVCs 3. H/o HTN, BP often in 90's to low 100's mm Hg during stay 4. Dyslipidemia, statin intolerance Plan: Patient had serial EKG and tropin levels that are negative. Resting echo with normal wall motion. DSE performed this am. Unable to walk due to ankle arthritis. Normal EKG and echocardiographic response having achieved target HR. Patient was uncomfortable during test with spasm of muscle of posterior neck, definitely sensed the occasional PVCs observed, but no prolonged chest pain that was similar to his anginal symptoms that occurred with DE last month. Will reduce lisinopril to 20 mg. DC coreg, and transition to metoprolol tartrate 25 mg BID, likely will provide better PVCs suppression. Start Zetia. Pt to ambulate in hallway. If no symptoms suggestive of angina, will DC with follow up with [facility] cardio at outpt in 1-2 weeks as pt would like to transition to our practice. I have contacted office for appointment. Laboratory Results Last 24 Hours Test 05/05/17 07:25 Sodium Level 135 mmol/L Potassium Level 4.2 mmol/L Chloride Level 105 mmol/L Carbon Dioxide Level 26 mmol/L Anion Gap 5.0 mmol/L Blood Urea Nitrogen 20 mg/dl Creatinine 1.23 mg/dl Est Creatinine Clear Calc Drug Dose 84.3 ml/min Estimated GFR () 76.7 Estimated GFR (Non- 66.1 BUN/Creatinine Ratio 15.9 Random Glucose 97 mg/dl Calcium Level 8.8 mg/dl Total Bilirubin 0.6 mg/dl Aspartate Amino Transf (AST/SGOT) 10 U/L Alanine Aminotransferase (ALT/SGPT) 19 U/L Alkaline Phosphatase 59 U/L Total Protein 6.6 gm/dl Albumin 3.5 gm/dl Globulin 3.1 gm/dl Albumin/Globulin Ratio 1.1
--- NOTE | 2017-05-05 11:31 | Progress Note ---
Internal Med Progress Note Date of Service: May 05, 2017. Provider Documentation: SUBJECTIVE: Patient seen and examined at the bedside after stress test. No acute distress. Eating his meal. No chest pain or shortness of breath OBJECTIVE: Exam: General- no acute distress Eyes- EOMI Neck- trachea midline, no JVD Lungs- CTABL Heart- RRR Abdomen- soft, nontender, + bowel sounds Extremities- no edema Neuro- no focal necrological deficits ASSESSMENT & PLAN: 56-year-old male with significant past medical history including heart attack x3 and recent status post cardiac cath and 2 more stent placement in LAD at [facility], on or 05 of April and also hyperlipidemia and hypertension. He has been complaining of feeling generally unwell for the last 2 to 3 weeks following that last stent placement in first week of April. negative troponin levels 3 Resting Echocardiogram 05/04/2017 There is mild concentric left ventricular hypertrophy. No regional wall motion abnormalities noted. Left ventricular systolic function is normal. The LV Ejection Fraction = 55-60%. Grade I diastolic dysfunction, (abnormal relaxation pattern). There is no significant valvular heart disease. dobutamine stress testing on 05/05/17: Normal EKG and echocardiographic response having achieved target HR For above cardiac history, HTN, dyslipidemia with medication regimen changes advised by cardiology service Continue aspirin, Brilinta and to be discharged with these prescription reduce lisinopril 40 mg daily to 20 mg daily and to be discharged with lisinopril 20 mg daily discontinue carvedilol 3.125 mg twice a day and to be discharged with metoprolol tartrate 25 mg BID Cardiology service added Zetia 10 mg daily and to be discharged with these prescription Smoking Cessation: Continue Nicotine patch, to be discharged with these prescription Gastrointestinal prophylaxis with Pantoprazole and to be discharged with pantoprazole Follow up appointments 05/11/2017 11:20 AM Sunny Ryder DO Family Practice [facility] 05/15/2017 3:00 PM Loy Acosta DO Cardiology, [facility] Discharge diagnosis Atypical chest pain. h/o CAD, PCI to LAD in 2005, 2014, 04/2017 Premature Ventricular Contractions History of HTN (blood pressure controlled in this hospital admission while on blood pressure medications) Dyslipidemia with statin intolerance Smoking Cessation Vital Signs: Date Time Temp Pulse Resp B/P (MAP) Pulse Ox O2 Delivery O2 Flow Rate FiO2 1/2/18 10:05 36.7 86 18 114/62 (79) 97 Room Air 05/05/17 08:00 Room Air 05/05/17 07:50 36.5 74 18 106/68 (81) 97 Room Air 05/05/17 04:00 Room Air 05/05/17 03:23 36.5 71 18 98/64 (75) 95 Room Air 05/05/17 00:00 Room Air 05/04/17 23:54 36.4 72 17 100/63 (75) 98 Room Air 05/04/17 20:00 Room Air 05/04/17 19:35 36.7 79 20 82/49 (60) 95 Room Air 05/04/17 16:00 Room Air 05/04/17 15:32 36.7 73 108/73 (85) 97 Room Air 05/04/17 12:00 Room Air 05/04/17 11:40 36.7 77 18 103/68 (80) 98 Room Air Lab Results: Results Past 24 Hours Test 05/05/17 07:25 Range/Units Sodium Level 135 136-145 mmol/L Potassium Level 4.2 3.5-5.1 mmol/L Chloride Level 105 98-107 mmol/L Carbon Dioxide Level 26 21-32 mmol/L Anion Gap 5.0 3-11 mmol/L Blood Urea Nitrogen 20 7-18 mg/dl Creatinine 1.23 0.60-1.40 mg/dl Est Creatinine Clear Calc Drug Dose 84.3 ml/min Estimated GFR () 76.7 Estimated GFR (Non- 66.1 BUN/Creatinine Ratio 15.9 10-20 Random Glucose 97 70-99 mg/dl Calcium Level 8.8 8.5-10.1 mg/dl Total Bilirubin 0.6 0.2-1 mg/dl Aspartate Amino Transf (AST/SGOT) 10 15-37 U/L Alanine Aminotransferase (ALT/SGPT) 19 12-78 U/L Alkaline Phosphatase 59 45-117 U/L Total Protein 6.6 6.4-8.2 gm/dl Albumin 3.5 3.4-5.0 gm/dl Globulin 3.1 2.5-4.0 gm/dl Albumin/Globulin Ratio 1.1 0.9-2
[2017-05-05] MEDS ORDERED: NICO21DI35 TD (11:34)
[2017-05-05] MEDS ORDERED: NTRGSL/4 UT (11:34)
[2017-05-05] MEDS ORDERED: TICA1TAB PO (11:34)
[2017-05-05] MEDS ORDERED: ASPCH81X PO (11:34)
[2017-05-05] MEDS ORDERED: ZTA10 PO (11:35)
[2017-05-05] MEDS ORDERED: LISI-726 PO (11:35)
[2017-05-05] MEDS ORDERED: LPR25 PO (11:35)
[2017-05-05] MEDS ORDERED: PANT1TAB4 PO (11:35)
[2017-05-05 11:36] VITALS: BP 103/58; PULSE 70; TEMP 36.8; O2SAT 97
--- NOTE | 2017-05-05 11:43 | Discharge Instructions ---
Discharge Instructions Date of Service May 05, 2017. Admission Reason for Admission: Chest Pain, Cad S/P Percutaneous Coronary Discharge Discharge Diagnosis / Problem: Atypical chest pain, history of HTN, Dyslipidemia, Smoking Cessation Discharge Goals Goal(s): Decrease discomfort, Improve function, Increase independence, Improve disease control Activity Recommendations Activity Limitations: per Instructions/Follow-up section Lifting Limitations: until after follow-up appointment Exercise/Sports Limitations: until after follow-up appointment Shower/Bathe: no limitations Instructions / Follow-Up Instructions / Follow-Up negative troponin levels 3 Resting Echocardiogram 05/04/2017 There is mild concentric left ventricular hypertrophy. No regional wall motion abnormalities noted. Left ventricular systolic function is normal. The LV Ejection Fraction = 55-60%. Grade I diastolic dysfunction, (abnormal relaxation pattern). There is no significant valvular heart disease. dobutamine stress testing on 05/05/17: Normal EKG and echocardiographic response having achieved target HR For above cardiac history, HTN, dyslipidemia with medication regimen changes advised by cardiology service Continue aspirin, Brilinta and to be discharged with these prescription reduce lisinopril 40 mg daily to 20 mg daily and to be discharged with lisinopril 20 mg daily discontinue carvedilol 3.125 mg twice a day and to be discharged with metoprolol tartrate 25 mg BID Cardiology service added Zetia 10 mg daily and to be discharged with these prescription Smoking Cessation: Continue Nicotine patch, to be discharged with these prescription Gastrointestinal prophylaxis with Pantoprazole and to be discharged with pantoprazole Follow up appointments 05/11/2017 11:20 AM Sunny Ryder DO Family Practice [facility] 05/15/2017 3:00 PM Loy Acosta DO Cardiology, [facility] For rescheduling call [facility] appointment line [phone] Discharge diagnosis Atypical chest pain. h/o CAD, PCI to LAD in 2005, 2014, 04/2017 Premature Ventricular Contractions History of HTN (blood pressure controlled in this hospital admission while on blood pressure medications) Dyslipidemia with statin intolerance Smoking Cessation Current Hospital Diet Patient's current hospital diet: AHA Diet (Heart Healthy) Discharge Diet Recommended Diet: AHA Diet (Heart Healthy) Pending Studies Studies pending at discharge: no Laboratory Results 05/04/17 05:35 05/05/17 07:25 Test 05/03/17 14:45 05/03/17 15:12 05/04/17 05:35 05/05/17 07:25 Immature Granulocyte % (Auto) 0.3 % White Blood Count 10.18 K/uL (4.8-10.8) Red Blood Count 5.25 M/uL (4.7-6.1) 4.84 M/uL (4.7-6.1) Hemoglobin 16.7 g/dL (14.0-18.0) Hematocrit 48.2 % (42-52) Mean Corpuscular Volume 91.8 fL (80-100) 91.1 fL (80-100) Mean Corpuscular Hemoglobin 31.8 pg (25-34) 31.6 pg (25-34) Mean Corpuscular Hemoglobin Concent 34.6 g/dl (32-36) 34.7 g/dl (32-36) Platelet Count 187 K/uL (130-400) Mean Platelet Volume 11.7 fL (7.4-10.4) 11.2 fL (7.4-10.4) Neutrophils (%) (Auto) 70.5 % Lymphocytes (%) (Auto) 19.6 % Monocytes (%) (Auto) 5.4 % Eosinophils (%) (Auto) 3.3 % Basophils (%) (Auto) 0.9 % Neutrophils # (Auto) 7.17 K/uL (1.4-6.5) Lymphocytes # (Auto) 2.00 K/uL (1.2-3.4) Monocytes # (Auto) 0.55 K/uL (0.11-0.59) Eosinophils # (Auto) 0.34 K/uL (0-0.5) Basophils # (Auto) 0.09 K/uL (0-0.2) Immature Granulocyte # (Auto) 0.03 K/uL (0.00-0.02) Prothrombin Time 10.6 SECONDS (9.0-12.0) Prothromb Time International Ratio 1.0 (0.9-1.1) Activated Partial Thromboplast Time 27.8 SECONDS (21.0-31.0) Partial Thromboplastin Ratio 1.1 Direct Bilirubin 0.1 mg/dl (0-0.2) Total Creatine Kinase 59 U/L (39-308) Creatine Kinase MB 0.8 ng/ml (0.5-3.6) Creatine Kinase MB Ratio 1.4 (0-3.0) Lipase 194 U/L (73-393) Bedside Troponin I < 0.030 ng/ml (0-0.045) RDW Standard Deviation 43.9 fL (36.4-46.3) RDW Coefficient of Variation 13.3 % (11.5-14.5) Magnesium Level 2.2 mg/dl (1.8-2.4) Troponin I < 0.015 ng/ml (0-0.045) Triglycerides Level 108 mg/dl (0-150) Cholesterol Level 233 mg/dl (0-200) HDL Cholesterol 35 mg/dl LDL Cholesterol, Calculated 176 mg/dl VLDL Cholesterol, Calculated 22 mg/dl Cholesterol/HDL Ratio 6.7 Thyroid Stimulating Hormone (TSH) 2.540 uIu/ml (0.300-4.500) Anion Gap 5.0 mmol/L (3-11) Est Creatinine Clear Calc Drug Dose 84.3 ml/min Estimated GFR () 76.7 Estimated GFR (Non- 66.1 BUN/Creatinine Ratio 15.9 (10-20) Calcium Level 8.8 mg/dl (8.5-10.1) Total Bilirubin 0.6 mg/dl (0.2-1) Aspartate Amino Transf (AST/SGOT) 10 U/L (15-37) Alanine Aminotransferase (ALT/SGPT) 19 U/L (12-78) Alkaline Phosphatase 59 U/L (45-117) Total Protein 6.6 gm/dl (6.4-8.2) Albumin 3.5 gm/dl (3.4-5.0) Globulin 3.1 gm/dl (2.5-4.0) Albumin/Globulin Ratio 1.1 (0.9-2) Lipid Panel Test 05/04/17 05:35 Range/Units Triglycerides Level 108 0-150 mg/dl Cholesterol Level 233 H 0-200 mg/dl HDL Cholesterol 35 mg/dl Cholesterol/HDL Ratio 6.7 LDL Cholesterol, Calculated 176 mg/dl Medical Emergencies . Who to Call and When: Medical Emergencies: If at any time you feel your situation is an emergency, please call 911 immediately. . Non-Emergent Contact Non-Emergency issues call your: Primary Care Provider, Furniture Upholstery Mechanic Call Non-Emergent contact if: your pain is not controlled, your pain is worsening, your pain is unusual for you, your pain is concerning you . . "Provider Documentation" section prepared by Vinny Marshall. . VTE Core Measure Inpt VTE Proph given/why not?: Unfractionated heparin SQ
--- NOTE | 2017-05-05 11:44 | Discharge Summary ---
Discharge Summary Date of Service May 05, 2017. Discharge Summary Admission Date: May 03, 2017 at 17:09 Discharge Date: May 05, 2017 Discharge Disposition: Home Principal Diagnosis: Atypical chest pain. h/o CAD, PCI to LAD in 2005, 2014, 04/2017 Premature Ventricular Contractions History of HTN (blood pressure controlled in this hospital admission while on blood pressure medications) Dyslipidemia with statin intolerance Smoking Cessation Medication Reconciliation New Medications: Ezetimibe (Zetia) 10 Mg Tab 10 MG PO QAM for 30 Days, #30 TAB Lisinopril (Lisinopril) 20 Mg Tab 20 MG PO QAM for 30 Days, #30 TAB Metoprolol Tartrate (Lopressor) 25 Mg Tab 25 MG PO BID for 30 Days, #60 TAB Pantoprazole (Pantoprazole Sodium) 40 Mg Tab 40 MG PO QAM for 30 Days, #30 TAB Continued Medications: Acetaminophen (Tylenol) 500 Mg Tab 500 MG PO Q6 PRN for Pain, TAB Aspirin (Aspirin Chewable) 81 Mg Chew 81 MG PO DAILY for 30 Days, #30 (This prescription has been renewed) Nicotine (Nicoderm Cq 21MG Patch) 21 Mg/24 Hr Dis 1 PATCH TD DAILY for 30 Days, #30 PATCH (This prescription has been renewed) Nitroglycerin (Nitrostat) 0.4 Mg Tab 0.4 MG UT PRN for 30 Days, #1 BTL (This prescription has been renewed) Ticagrelor (Brilinta) 90 Mg Tab 1 TAB PO BID for 30 Days, #30 (This prescription has been renewed) Discontinued Medications: Carvedilol (Coreg) 3.125 Mg Tab 3.125 MG PO BID, TAB Lisinopril (Zestril) 40 Mg Tab 40 MG PO DAILY, TAB Admission Information HPI (per Admitting provider): CHIEF COMPLAINT: Dizziness, nausea, lethargy for about 2 to 3 weeks. Chest pain when he woke up this morning. HISTORY OF PRESENT COMPLAINT: He is a 56-year-old male with significant past medical history including heart attack x3 and recent status post cardiac cath and 2 more stent placement in LAD at [facility], on or 05 of April and also hyperlipidemia and hypertension. He has been complaining of feeling generally unwell for the last 2 to 3 weeks following that last stent placement in first week of April. He denies to have any increasing shortness of breath with any increasing tiredness and fatigue with any chest pain, but early this morning, he woke up with a punch in the chest, not like the chest pain that he had before, but that lasted for 10 minutes when he called ambulance. In the ambulance, he got the nitroglycerin. The pain almost gone away and he had some headache following that. No radiation of pain. Did have some nausea, but no vomiting and did have some shortness of breath as well. In the ER, he is free of pain and apparent test came back fairly unremarkable, but given the history of stent placement recently and the chest pain, he was admitted to telemetry unit. Physical Exam (per Admitting): GENERAL: On examination in the Emergency Room, he was not having any acute distress. VITAL SIGNS: Temperature 37.1, pulse is 94, blood pressure 125/94, and saturation 99% on room air. HEENT: Unremarkable. NECK: Supple. No JVD. No bruit. CHEST: Clear to auscultate bilaterally. HEART: S1, S2 regular. ABDOMEN: Soft, benign, nontender. No organomegaly. Bowel sounds present. EXTREMITIES: Negative for any edema. MUSCULOSKELETAL: Examination of the musculoskeletal system did not show any acute arthritis involving any joint. CENTRAL NERVOUS SYSTEM: He was alert, awake, oriented x3. Hospital Course 56-year-old male with significant past medical history including heart attack x3 and recent status post cardiac cath and 2 more stent placement in LAD at [facility], on or 05 of April and also hyperlipidemia and hypertension. He has been complaining of feeling generally unwell for the last 2 to 3 weeks following that last stent placement in first week of April. negative troponin levels 3 Resting Echocardiogram 05/04/2017 There is mild concentric left ventricular hypertrophy. No regional wall motion abnormalities noted. Left ventricular systolic function is normal. The LV Ejection Fraction = 55-60%. Grade I diastolic dysfunction, (abnormal relaxation pattern). There is no significant valvular heart disease. dobutamine stress testing on 05/05/17: Normal EKG and echocardiographic response having achieved target HR For above cardiac history, HTN, dyslipidemia with medication regimen changes advised by cardiology service Continue aspirin, Brilinta and to be discharged with these prescription reduce lisinopril 40 mg daily to 20 mg daily and to be discharged with lisinopril 20 mg daily discontinue carvedilol 3.125 mg twice a day and to be discharged with metoprolol tartrate 25 mg BID Cardiology service added Zetia 10 mg daily and to be discharged with these prescription Smoking Cessation: Continue Nicotine patch, to be discharged with these prescription Gastrointestinal prophylaxis with Pantoprazole and to be discharged with pantoprazole Follow up appointments 05/11/2017 11:20 AM Sunny Ryder DO [facility] 05/15/2017 3:00 PM Loy Acosta DO Cardiology, [facility] Discharge diagnosis Atypical chest pain. h/o CAD, PCI to LAD in 2005, 2014, 04/2017 Premature Ventricular Contractions History of HTN (blood pressure controlled in this hospital admission while on blood pressure medications) Dyslipidemia with statin intolerance Smoking Cessation Total time spent on discharge = This includes examination of the patient, discharge planning, medication reconciliation, and communication with other providers. Discharge Instructions negative troponin levels 3 Resting Echocardiogram 05/04/2017 There is mild concentric left ventricular hypertrophy. No regional wall motion abnormalities noted. Left ventricular systolic function is normal. The LV Ejection Fraction = 55-60%. Grade I diastolic dysfunction, (abnormal relaxation pattern). There is no significant valvular heart disease. dobutamine stress testing on 05/05/17: Normal EKG and echocardiographic response having achieved target HR For above cardiac history, HTN, dyslipidemia with medication regimen changes advised by cardiology service Continue aspirin, Brilinta and to be discharged with these prescription reduce lisinopril 40 mg daily to 20 mg daily and to be discharged with lisinopril 20 mg daily discontinue carvedilol 3.125 mg twice a day and to be discharged with metoprolol tartrate 25 mg BID Cardiology service added Zetia 10 mg daily and to be discharged with these prescription Smoking Cessation: Continue Nicotine patch, to be discharged with these prescription Gastrointestinal prophylaxis with Pantoprazole and to be discharged with pantoprazole Follow up appointments 05/11/2017 11:20 AM Sunny Ryder DO [facility] 05/15/2017 3[facility]00 [facility] line [phone] Discharge diagnosis Atypical chest pain. h/o CAD, PCI to LAD in 2005, 2014, 04/2017 Premature Ventricular Contractions History of HTN (blood pressure controlled in this hospital admission while on blood pressure medications) Dyslipidemia with statin intolerance Smoking Cessation
[2017-05-05 11:49] VITALS: BP 114/62; PULSE 86; TEMP 36.7; O2SAT 97
--- NOTE | 2017-05-05 15:01 | DOBUTAMINE ECHO ---
*NOTICE TO RECEIVING LIBERTARIAN AGENCY This information is strictly Confidential and protected under [place] law. [place] law prohibits you from making any further disclosure of this information unless further disclosure is expressly permitted by the written consent of the person to whom it pertains or is authorized by law. A general authorization for the release of medical or other information is not sufficient for this purpose. Hospital accepts no responsibility if the information is made available to any other person, INCLUDING THE PATIENT. Interpretation Summary * Name: NORI SANCHES Study Date: 05/05/2017 07:58 AM BP: 127/54 mmHg * Patient Location: C.2T\S\S242\S\2 HR: 74 * : 1960 (M/d/yyyy) Gender: Male Height: 72 in * Age: 56 yrs Ethnicity: [place] Weight: 223 lb * Ordering Physician: Loy Acosta * Referring Physician: Self, Referred * Performed By: Carol Abreu RDCS * * Reason For Study: Chest Pain, Recent LAD [place] * BSA: 2.2 m2 * -- Conclusions -- * STRESS STUDY: * Normal pharmacologic stress echocardiogram. * No echocardiographic or ECG evidence of myocardial ischemia having achieved heart rate adequate for diagnostic purposes. * Palpitations were reported that correlated with sensed ventricular ectopy. * Patient felt poorly with dobutamine infusion, with posterior neck muscle cramping related to his position in the bed, however, symptoms did not mimic his prior established angina. Procedure Details * DOBUTAMINE ECHO, CPT#81635 * A contrast injection of Definity was performed to improve assessment of LV function. * Contrast was injected into an intravenous site in the right arm. * One vial of Definity ultrasound contrast was diluted in normal saline to a total volume of 10 ml. A total of '5' ml of solution was administered during imaging. * Lot # [id number] of Definity utilized for procedure. * Expiration date . * The attending nurse who injected the contrast agent was Glenda Goodwin RN. Left Ventricle * The left ventricle is normal in size. There is mild concentric left ventricular hypertrophy. The resting LV Ejection Fraction = 55-60%. * Resting wall motion: Normal. Stress wall motion: Appropriate increase in Left ventricular systolic function and decrease in cavity size. No stress induced segmental wall motion abnormalities. Stress Parameters * The baseline ECG revealed sinus rhythm at 77 bpm. An age undetermined anterior infarction pattern was present with poor R wave progression in the anterior leads. * The stress ECG response was normal * Stress ECG: No ST changes. Isolated premature ventricular contractions were present. * The stress portion of this study was personally supervised by the undersigned interpreting physician. * Rest heart rate was '74' BPM. * Rest blood pressure was '127/54' * Maximum heart rate achieved was 144 bpm. * Maximum heart rate was 86 % of maximum age-predicted heart rate. * Maximum blood pressure was '155/68' * Maximum Dobutamine infusion rate was '40' mcg/kg/min. * A total of 0.5 mg of intravenous Atropine was used to supplement Dobutamine for heart rate response. * Dobutamine infusion was terminated due to achieving target heart rate * A total of 5 mg of IV Metoprolol was administered to reverse Dobutamine-induced tachycardia.
[2017-05-05] MEDS ORDERED: METOPROLOL TARTRATE 25 MG TAB PO SCH (21:00)
[2017-05-06] MEDS ORDERED: LISINOPRIL 20 MG TAB PO SCH (09:00)
== END 2017-05-05 13:15 | disposition home or self-care (01) ==
LOC: EDBD 14:52 → C.EDA 14:55 → C.2T 17:09 → ENRESERV 17:29
PROVIDERS: ADMIT Internal Medicine; ATTEND Internal Medicine
DX: R07.89 Other chest pain (principal); I49.3 Ventricular premature depolarization; I25.10 Atherosclerotic heart disease of native coronary artery without angina pectoris; I10 Essential (primary) hypertension; E78.5 Hyperlipidemia, unspecified; I25.2 Old myocardial infarction; Z87.891 Personal history of nicotine dependence; Z79.82 Long term (current) use of aspirin; Z95.5 Presence of coronary angioplasty implant and graft

== ENCOUNTER 2017-08-12 09:25 | Emergency (ER) | payer OTHER ==
[~2017-08-12] VITALS: Ht 182.9 cm; Wt 105.0 kg
[~2017-08-12 09:25] MED LIST: ACET-1256 PO; ASPCH81X PO; LPR25 PO; LSN20 PO; NICO21DI35 TD; NTRGSL/4 UT; PRT40 PO; TICA1TAB PO; ZTA10 PO
[2017-08-12 09:33] VITALS: TEMP 37; Ht 182.9 cm; Wt 105.0 kg
[2017-08-12] MEDS ORDERED: SULFAMETHOXAZOLE/TRIMETHOPRIM DS 800/160MG TAB PO STA (10:00)
[2017-08-12] MEDS ORDERED: LIDOCAINE/EPINEPHRINE 1% 20 ML VIAL INFIL STA (10:00)
[2017-08-12] MEDS ORDERED: CEPHALEXIN MONOHYDRATE 250 MG CAP PO STA (10:00)
[2017-08-12] MEDS ORDERED: TICA1TAB PO (10:52)
[2017-08-12] MEDS ORDERED: CEPH500C PO (11:36)
[2017-08-12] MEDS ORDERED: SULF800T23 PO (11:36)
--- NOTE | 2017-08-12 11:38 | EMERGENCY ROOM VISIT NOTE ---
ED Visit Note First contact with patient: 09:41 CHIEF COMPLAINT: Infection of the posterior scalp, skin rash HISTORY OF PRESENT ILLNESS: This 57-year-old male patient presents to the emergency department 1 day after they noticed a hard, red, tender area of the posterior scalp. It is slowly getting larger, more painful and tender. No fever, chills, or loss of appetite. There has been no drainage from the area. There was no injury to the area preceding the infection, however the patient is concerned for possible open wound from scratching the rash which appeared at the base of the scalp. They rate the pain as sharp and 8/10. Tetanus shot is up to date. They have tried no medications or therapies at home. The patient is not diabetic. The patient has no history of subcutaneous abscesses. The patient has been experiencing an itchy, erythematous rash on his right leg, right ear, posterior neck, and right shoulder. He does report a history of a similar rash. He has been on an antibiotic, but is uncertain which one. He states he is also used steroid cream. These remedies to help for a short period of time, however the rash seems to come back. 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 He is seeing his primary care provider regarding the rash, however became concerned when he noticed the abscess today. He does have an appointment scheduled for Thursday with his PCP and is to have outpatient labs performed prior to that time. REVIEW OF SYSTEMS: A 10 system review of systems was performed with positives and pertinent negatives listed in the history of present illness. All other systems were reviewed and are negative. ALLERGIES: Acetaminophen, hydrocodone, statins MEDICATIONS: Metoprolol, Brilinta, lisinopril, aspirin, ezetimibe, Protonix PMH: Heart disease, hypertension, multiple MIs, multiple stents SOCIAL HISTORY: Patient lives locally with family. He denies drug, alcohol use. He admits to smoking tobacco daily. PHYSICAL EXAM: Vital Signs: Reviewed Nurse's notes, vital signs stable. GENERAL : This is a 57-year-old white male, no acute distress, non toxic in appearance, well-developed well-nourished. SKIN: There is an erythematous indurated area on the right posterior scalp which measures about 4 cm in diameter. It is fluctuant but there is no pointing or drainage. There is a zone of inflammation around it but no lymphangitis. There is a maculopapular rash on the right ear, base of the scalp, right anterior lowe with mild erythema and swelling. There are no open wounds. There is no draining. There are no other abscesses noted. Capillary refill less than 2 seconds. MUSCULOSKELETAL: There is no limitation of the range of motion of the neck. EMERGENCY DEPARTMENT COURSE: I examined the patient. I suspect the abscess is related to the trauma associated with scratching at the rash. I offered to perform lab workup, and the patient declines. I did discuss options for draining the abscess at this time versus antibiotics with close follow-up. The patient would like to proceed with the procedure. Verbal consent was obtained to perform the procedure. After saline and Betadine cleansing and 12 mL of 1% lidocaine with epinephrine anesthesia, the abscess was incised with a number 11 scalpel blade. A large amount of bloody, mildly purulent material was released with more expressed by pressure. A swab was obtained for culture. The abscess cavity was further probed with a needle log truck driver and the deep pocket expressed. The abscess cavity was then copiously irrigated with sterile saline under pressure. The area was then packed with bacitracin soaked packing. The area was cleaned with sterile saline and dressed with bacitracin and a bulky bandage. The patient was given his first dose of Bactrim and Keflex while here in the emergency department. He was given close follow-up instructions, and states he does have an appointment on Thursday with his PCP. He will follow-up regarding the rash and abscess at that time. The patient tolerated the procedure well. The patient was discharged home in stable condition. Patient was found to have normal blood pressure on screening and does not require follow-up. I attest that I have personally reviewed the patient's current medication list. Differential diagnosis includes fungal, scabies, herpes, dermatitis, eczema, cellulitis, abscess, viral, musculoskeletal etiology, hepatic abnormality, malignancy, and others DIAGNOSIS: Abscess of the posterior scalp, dermatitis DISCHARGE INSTRUCTIONS & TREATMENT: Change the dressing if it becomes soiled or blood-stained and remove the drain in about 36 hours. Cephalexin, 500 mg 4 times a day for 7 days. Return if any problems such as fever or increasing pain. See a general surgeon if an abscess re-occurs in the same area in the future for consideration of excision of the cyst. Problem List Medical Problems: (1) Heart disease Status: Chronic (2) Non-STEMI (non-ST elevated myocardial infarction) Status: Resolved Current/Historical Medications Scheduled Aspirin (Aspirin Chewable), 81 MG PO DAILY Cephalexin Monohydrate (Keflex), 500 MG PO QID Ezetimibe (Zetia), 10 MG PO QAM Lisinopril (Lisinopril), 20 MG PO QAM Metoprolol Tartrate (Lopressor), 25 MG PO BID Nitroglycerin (Nitrostat), 0.4 MG UT PRN Pantoprazole (Pantoprazole Sodium), 40 MG PO QAM Sulfa/Trimethoprim (Bactrim Ds 800MG/160MG), 1 TAB PO BID Ticagrelor (Brilinta), 90 MG PO BID Scheduled PRN Acetaminophen (Tylenol), 500 MG PO Q6 PRN for Pain Allergies Coded Allergies: Acetaminophen (Verified Allergy, Unknown, RASH, 08/12/17) Hydrocodone (Verified Allergy, Unknown, RASH, 08/12/17) Statins (Verified Allergy, Unknown, GI SYMPTOMS, MUSCLE PAIN, WEAKNESS, 03/21) Vital Signs Date Time Temp Pulse Resp B/P (MAP) Pulse Ox O2 Delivery O2 Flow Rate FiO2 08/12/17 11:53 76 16 148/87 98 08/12/17 09:33 37.0 83 18 131/82 98 Room Air Medications Administered Medications (Trade) Dose Ordered Sig/Ynes Route Start Time Stop Time Status Last Admin Dose Admin Lidocaine/ Epinephrine (Xylocaine/Epine 1% Inj) 20 ml ONE STAT INFIL 08/12/17 10:00 08/12/17 10:04 DC 08/12/17 10:18 20 ML Trimethoprim/ Sulfamethoxazole (Septra Ds 800/ 160MG Tab) 1 tab NOW STAT PO 08/12/17 10:00 08/12/17 10:04 DC 08/12/17 10:19 1 TAB Cephalexin Monohydrate (Keflex Cap) 500 mg NOW STAT PO 08/12/17 10:00 08/12/17 10:04 DC 08/12/17 10:19 500 MG Departure Information Impression Primary Impression: Abscess, scalp Additional Impression: Dermatitis Dispostion Home / Self-Care Condition GOOD Prescriptions Cephalexin Monohydrate (Keflex) 500 Mg Cap 500 MG PO QID for 10 Days, #40 CAP Prov: Denny Angella D., PA-C 08/12/17 Sulfa/Trimethoprim (Bactrim Ds 800MG/160MG) Tab 1 TAB PO BID for 10 Days, #20 TAB Prov: Angella Baldwin PA-C 08/12/17 Referrals No Doctor, Assigned (PCP) Sunny Ryder D.O. Patient Instructions ED Abscess IandD, ED Dermatitis Non Specific Rash, My [facility] Additional Instructions He was seen in the emergency department today for a rash and abscess on your scalp. The abscess was successfully incised and drained. Cephalexin(Keflex) 500mg: Take one pill four times daily for 10 days for your skin infection. All antibiotics can cause diarrhea. If this occurs and you feel worse or it does not resolve in 1-2 days follow up with your doctor or return to the Emergency Department as this could be signs of serious underlying problems. Any medication can cause an allergic reaction, stop the pills immediately and return to the ER for rash, hives, breathing difficulties, or swelling. Trimethoprim-Sulfamethoxazole(Bactrim DS): Take one pill twice daily for 10 days for your skin infection. All antibiotics can cause diarrhea. If this occurs and you feel worse or it does not resolve in 1-2 days follow up with your doctor or return to the Emergency Department as this could be signs of serious underlying problems. Any medication can cause an allergic reaction, stop the pills immediately and return to the ER for rash, hives, breathing difficulties, or swelling. Leave the packing in place and avoid getting it wet for the first 48 hours. Please follow-up with your primary care provider on Thursday at your regularly scheduled appointment to have the packing removed and wound rechecked. Return to the emergency department for any worsening redness, pain, swelling, significant drainage, fevers, or other systemic symptoms. Problem Qualifiers
[2017-08-12 11:53] VITALS: BP 148/87; PULSE 76; O2SAT 98
--- NOTE | 2017-08-14 15:21 | Pharmacy Progress Note ---
ED Pharmacist Culture FollowUp Date of Service: Aug 14, 2017. Patient growing Coag neg staph from scalp abscess s/p I &D. The patient was discharged on keflex and bactrim and was to have a follow up appointment with PCP today. I spoke with the provider who originally saw the patient, Angella Baldwin PA-C, and she would like to continue both antibiotics at this time, stating no change is currently necessary.
== END 2017-08-12 11:55 | disposition home or self-care (01) ==
LOC: C.EDB 09:29
DX: L02.811 Cutaneous abscess of head [any part, except face] (principal); L30.9 Dermatitis, unspecified; I11.9 Hypertensive heart disease without heart failure; I25.2 Old myocardial infarction; F17.210 Nicotine dependence, cigarettes, uncomplicated; Z79.899 Other long term (current) drug therapy; Z79.82 Long term (current) use of aspirin; Z88.5 Allergy status to narcotic agent; Z88.8 Allergy status to other drugs, medicaments and biological substances